=== PATIENT | female | born 1950 | race Caucasian/White ===

== ENCOUNTER 2016-11-27 23:36 | Emergency (ER) | payer OTHER ==
[~2016-11-27] VITALS: Ht 160 cm; Wt 96.2 kg
[~2016-11-27 23:36] MED LIST: ACETAMINOPHEN325 M1 PO; ACID CONTROL20 MG PO; ADVAIR 100-501 EACH INH; ADVAIR 250-501 EACH INH; ADVAIRDISKUS; ALBUTEROL2.5 MG/31 INH; ALDACTONE25 MG PO; AMBIEN 10 MG TA10 MG PO; ANALGESIC CREME86 GM; ANALGESIC325 MG PO; ASPIRIN EC81 M1 PO; ASPIRIN81 M2 PO; ASTELIN30 ML NASAL; ASTEPRO NASAL; BACITRACIN28.4 GM TP; CALCIUM + D SO1 EACH PO; CARDIZEM CD240 MG PO; CARVEDILOL6.25 MG PO; CELEBREX 200 M200 MG PO; CELEXA 20 MG TA20 MG PO; CIPROFLOXACIN500 M3 PO; CLEOCIN HCL300 MG PO; COLACE100 MG PO; COUMADIN; COUMADIN 5 MG TA5 M1 PO; DIPHENHYDRAMINE25 M3 PO; FERRO-TIME325 MG PO; FUROSEMIDE 40 M40 M1 PO; GRALISE600 MG PO; HYDROCERIN CREA1 JAR TOP; HYDROCODONE-AP1 EA15 PO; IRON236 MG PO; KEPPRA XR750 MG PO; KEPPRA250 MG PO; KEPPRA750 MG PO; KLOR-CON 10 ER10 MEQ PO; LANOXIN 0.120.125 M1 PO; LASIX 80 MG TAB80 M1 GT; LEVAQUIN 500 M500 M8 PO; LEVEMIR SQ; LEVEMIR SUBQ; LEVOTHROID125 MCG PO; LEVOTHROID150 MCG PO; LEVOTHYROXIN0.125 M1 PO; LEVOTHYROXIN0.175 MG PO; LEXAPRO 10 MG T10 MG PO; LIDODERM 5%1 PATC1 TOP; LIDODERM 5%1 PATCH TOP; LOPRESSOR25 PO; LOPRESSOR50 PO; LORTAB 7.5/5001 TA3 PO; MICRO-K 10 MEQ10 MEQ OR; MUCINEX TA600 MG/TA1 PO; NEURONTIN 400400 M1 PO; NEURONTIN600 MG PO; NORCO 7.5-3251 EACH PO; NOVOLOG100 UNIT/1 SUBQ; POTASSIUM20 PO; PROAIR HFA8.5 GM INH; PROMETHAZI6.25 MG/5 PO; SPIRIVA INH; SUDAFED 12 HOU120 MG PO; SUDAFED30 MG PO; TRAZODONE 150150 MG PO; VYTORIN 10-801 EACH PO; XARELTO20 MG PO
[2016-11-27] MEDS ORDERED: SPIRIVA INH (23:57)
[2016-11-27] MEDS ORDERED: CARTIA XT240 M1 PO (23:59)
[2016-11-28] MEDS ORDERED: COREG6.25 MG PO (00:01)
[2016-11-28 00:40] LABS: ABSOLUTE NEUTROPHILS 8.7 thou/uL (1.4-8.2); BASOPHILS 0.6 % (0.0-2.0); EOSINOPHILS 0.1 % (0.0-3.0); HEMATOCRIT 38.5 % (37.0-47.0); HEMOGLOBIN 12.3 gm/dL (12.0-15.0); LYMPHOCYTES 11.9 % (24.0-44.0); MCHC 31.9 g/dL (28.0-37.0); MCV 75.3 fL (80.0-100.0); MONOCYTES 4.7 % (1.0-8.0); PLATELET COUNT 248 thou/uL (150-400); POLYS 82.7 % (36.0-66.0); RBC 5.11 mil/uL (4.20-5.00); RDW 18.6 % (10.5-14.5); WBC 10.5 thou/uL (4.0-11.0)
[2016-11-28 00:41] LABS: MANUAL DIFF NO
[2016-11-28 00:53] LABS: CALCIUM 9.6 mg/dL (8.5-10.1); CREATININE 0.7 mg/dL (0.6-1.0); POTASSIUM 3.8 mmol/L (3.5-5.1)
[2016-11-28 00:58] LABS: ALBUMIN 3.4 g/dL (3.4-5.0); DIGOXIN 0.6 ng/mL (0.9-2.0); TOTAL BILIRUBIN 0.3 mg/dL (<0.1-1.0); TOTAL PROTEIN 7.9 g/dL (6.4-8.2)
[2016-11-28] MEDS ORDERED: ZOFRAN ODT8 MG PO (02:22)
[2016-11-28] MEDS ORDERED: NORCO 5-325 TA1 EACH PO (02:22)
== END 2016-11-28 04:37 | disposition home or self-care (01) ==
LOC: ER 23:36
PROVIDERS: Emergency Medicine
DX: R11.2 Nausea with vomiting, unspecified (principal); G89.4 Chronic pain syndrome; J44.9 Chronic obstructive pulmonary disease, unspecified; I13.0 Hypertensive heart and chronic kidney disease with heart failure and stage 1 through stage 4 chronic kidney disease, or unspecified chronic kidney disease; E11.22 Type 2 diabetes mellitus with diabetic chronic kidney disease; N18.9 Chronic kidney disease, unspecified; I50.9 Heart failure, unspecified; I48.91 Unspecified atrial fibrillation; E78.5 Hyperlipidemia, unspecified; E66.01 Morbid (severe) obesity due to excess calories; E03.9 Hypothyroidism, unspecified; F32.9 Major depressive disorder, single episode, unspecified; E11.42 Type 2 diabetes mellitus with diabetic polyneuropathy; F17.210 Nicotine dependence, cigarettes, uncomplicated; Z95.5 Presence of coronary angioplasty implant and graft; Z99.81 Dependence on supplemental oxygen; Z79.4 Long term (current) use of insulin; Z98.890 Other specified postprocedural states; Z88.0 Allergy status to penicillin; Z88.1 Allergy status to other antibiotic agents; Z88.7 Allergy status to serum and vaccine; Z88.8 Allergy status to other drugs, medicaments and biological substances

== ENCOUNTER → 2016-12-15 | Outpatient (CLI) | payer OTHER ==
[~2016-12-15] MED LIST changes: +CARTIA XT240 M1 PO; +COREG6.25 MG PO; +NORCO 5-325 TA1 EACH PO; +ZOFRAN ODT8 MG PO
--- NOTE | ~2016-12-15 | 2DMMODE ---
[facility] [place] [address] 2 D/M-MODE ECHOCARDIOGRAM Name: ELIESERSOPHY Room #: REG COUNT INCLUDES THE [facility]#: [id number] Admission: 12/15/16 Attend Phys: Zachery Corado Discharge: Date of : 46 Date of Service: 12/15/16 [facility] Report #: [id number] THIS REPORT FOR: //name// APPROVED REPORT Study performed: 12/15/2016 12:56:09 EXAM: Comprehensive 2D, Doppler, and color-flow Echocardiogram Patient Location: Out-Patient Status: routine BSA: 1.98 HR: 69 bpm BP: 120/72 mmHg Other Information Study Quality: Poor Indications Arrhythmia 2D Dimensions RVDd: 38.82 mm LVEF(%): 77.79 (>50%) IVSd: 7.41 (7-11mm) LVOT Diam: 21.38 (18-24mm) LVDd: 47.42 mm PWd: 10.25 (7-11mm) Ascending Ao: 29.46 (22-36mm) LVDs: 25.40 (25-40mm) Aortic Root: 28.93 mm Newberry's LVEF: 77.79 % Volumes Left Atrial Volume (Systole) Single Plane 4CH: 67.32 mL Single Plane 2CH: 65.96 mL LA ESV Index: 37.00 mL/m2 Aortic Valve AoV Peak Antonio.: 1.62 m/s AO Peak Gr.: 10.99 mmHg LVOT Max P.08 mmHg LVOT Max V: 0.88 m/s RAMY Vmax: 1.94 cm2 Mitral Valve E/A Ratio: 1.8 MV Decel. Time: 217.90 ms MV E Max Antonio.: 0.94 m/s [facility] [address] [place] [address] 2 D/M-MODE ECHOCARDIOGRAM Name: BALWINDER MONMARICRUZ Barton Room #: [facility]#: [id number] Admission: 12/15/16 Attend Phys: Zachery Corado Discharge: Date of : 46 Date of Service: 12/15/16 1500 Report #: [id number] MV A Antonio.: 0.51 m/s MV PHT: 63.19 ms IVRT: 110.73 ms Pulmonary Valve PV Peak Antonio.: 0.81 m/s PV Peak Gr.: 2.62 mmHg Tricuspid Valve TR Peak Antonio.: 3.00 m/s RAP Estimate: 5.00 mmHg TR Peak Gr.: 35.98 mmHg PA Pressure: 41.00 mmHg Left Ventricle The left ventricle is normal size. There is normal left ventricular wall thickness. Left ventricular systolic function is mildly decreased. LVEF is 45%. Right Ventricle The right ventricle is normal size. The right ventricular systolic function is normal. Atria Left atrium is dilated. Right atrium is dilated. Aortic Valve Aortic valve is calcified. No aortic regurgitation is present. There is no aortic valvular stenosis. Mitral Valve The mitral valve is normal in structure. Mild to moderate mitral regurgitation. No evidence of mitral valve stenosis. Tricuspid Valve The tricuspid valve is normal in structure. There is moderate tricuspid regurgitation. The right atrial pressure is estimated at 5 mmHg. There is mild-moderate pulmonary hypertension with an estimated PAP of 41 mmHg. Pulmonic Valve The pulmonary valve is normal in structure. Trace pulmonic regurgitation. Great Vessels The aortic root is normal in size. IVC is normal in size and collapses >50% with inspiration. [facility] [address] [place] [address] 2 D/M-MODE ECHOCARDIOGRAM Name: SOPHY MON Room #: REG Pattie#: [id number] Admission: 12/15/16 Attend Phys: Zachery Corado Discharge: Date of : 46 Date of Service: 12/15/16 1500 Report #: [id number] Pericardium There is no pericardial effusion. <Conclusion> The left ventricle is normal size. Left ventricular systolic function is mildly decreased. LVEF is 45%. Left atrium is dilated. Right atrium is dilated. Aortic valve is calcified. No aortic regurgitation is present. There is no aortic valvular stenosis. The mitral valve is normal in structure. Mild to moderate mitral regurgitation. The tricuspid valve is normal in structure. There is moderate tricuspid regurgitation. The right atrial pressure is estimated at 5 mmHg. There is mild-moderate pulmonary hypertension with an estimated PAP of 41 mmHg. The pulmonary valve is normal in structure. Trace pulmonic regurgitation. <ELECTRONICALLY SIGNED> By: Patric Menard MD 12/15/16 1500 1500 1500 Patric Menard MD /INF
== END ==
LOC: CV
DX: I49.5 Sick sinus syndrome (principal)

== ENCOUNTER 2017-01-26 16:25 | Inpatient (IN) | payer OTHER ==
[~2017-01-26] VITALS: Ht 160 cm; Wt 83.0 kg
--- NOTE | ~2017-01-26 | S ---
[facility] [place] [address] SURGICAL PATH RPT PROCEDURE Name: SOPHY MON Room #: 443-P [facility] IN M.R.#: [id number] Admission: 01/26/17 Date of : 46 Discharge: 01/29/17 Report #: [id number] Path Case #: [id number] PATHOLOGY REPORT COLLECTION DATE: 01/28/2017 RECEIVED DATE: 01/30/2017 SUBMITTING PHYS: Dr. Severiano Juárez OTHER PHYS: Dr. Carlton Lebron SPECIMEN(S) RECEIVED: A.Gallbladder * * * * * * * * * * * * FINAL DIAGNOSIS: Gallbladder, cholecystectomy: - Chronic cholecystitis. PATHOLOGIST: Chencho Guajardo M.D. REPORT ELECTRONICALLY SIGNED BY: Chencho Guajardo M.D. DATE/TIME: 01/31/2017 10:11 * * * * * * * * * * * * GROSS PATHOLOGY: Received in formalin labeled "Sophy Mon gallbladder," is a 6.8 x 4.4 x 1.9 cm, previously opened gallbladder with a hargrove bluish, vascular, and wrinkled serosal surfaces. Opening the gallbladder reveals dark hong, velvety mucosa and an average wall thickness of 0.2 cm. Calculi are not present (upon filtration of the specimen container and contents) and no masses are noted grossly. Form Worker sections from the body and fundus are submitted along with the proximal margin in cassette A1. (TSD; 01/30/2017) CLINICAL HISTORY: Pre-OP DX: Symptomatic cholelithiasis Post-OP DX: Same; Path pending INITIAL CPT CODE(S): A; 32180 Professional services performed by [facility] at [facility] [address], [place] [address] Technical services performed by [facility] at [address] [place] [address] [address] [place] [address] SURGICAL PATH RPT PROCEDURE Name: ELIESERSOPHY Room #: 443-P [facility].#: [id number] Admission: 01/26/17 Date of : 46 Discharge: 01/29/17 Report #: [id number] Path Case #: [id number] [place] [address]. [facility] [address] [place] [address] PHONE: [phone] DIRECTOR: Rory Das M.D. * * * END OF REPORT * * *
--- NOTE | ~2017-01-26 | HC ---
[facility] [place] [address] CONSULTATION Name: SOPHY MON Room #: 443-P [facility] IN M.R.#: [id number] Admission: 01/26/17 Attend Phys: Carlton Culver MD Discharge: Date of : 46 Report #: [id number] THIS REPORT FOR: //name// CC: CHRISTIE Lebron REASON FOR CONSULTATION: Upper epigastric abdominal pain. HISTORY OF PRESENT ILLNESS: This is a 66-year-old female patient with multiple medical issues, who presented to [facility] with upper epigastric abdominal pain. Her symptoms began approximately 2 months ago. She has had difficulty with nausea and vomiting postprandially, worse after eating fatty foods. She has associated symptoms of nausea and vomiting, but denies fever or chills. She saw her primary care physician 1 month ago and underwent a CT of the abdomen and pelvis which showed a normal gallbladder. She also underwent an ultrasound, which showed large gallstones. Over the past couple of months, she notes a 20-pound weight loss. She was seen in the [facility] last night and underwent an abdominal ultrasound showing gallstones with minimal sludge. There was no evidence for acute cholecystitis or biliary obstruction on the study. Her laboratory studies showed a normal white blood cell count and normal liver function tests. I have been asked to see the patient for further evaluation and treatment. PAST MEDICAL HISTORY: Multiple and includes COPD, congestive heart failure, type 2 diabetes mellitus, and hypertension. She also has a history of atrial fibrillation/atrial flutter, status post ablation, sleep apnea, hypothyroidism, peripheral vascular disease, and depression. PAST SURGICAL HISTORY: Her operations include pacemaker placement, tonsillectomy, left rotator cuff surgery, cardiac catheterization. MEDICATIONS: At home include Spiriva, diltiazem, carvedilol, Pepcid, digoxin, NovoLog insulin, diphenhydramine, Levemir, Aldactone, AccuNeb, ProAir, calcium plus vitamin D, Advair, Neurontin, 81 mg aspirin, Lasix, Astelin, iron, Keppra, Lopressor, potassium chloride. Please see the hospital chart for dosing details. ALLERGIES: ADENOSINE, TETANUS TOXOID, TETRACYCLINE, AND PENICILLIN. FAMILY HISTORY: Reviewed and noncontributory to this hospitalization. SOCIAL HISTORY: The patient smokes a half a pack of cigarettes daily over the past 50 years and at times had been smoking 2 packs of cigarettes daily. She denies use of alcohol or illicit drugs. REVIEW OF SYSTEMS: As per history of present illness in addition: [address] [address] CONSULTATION Name: BALWINDER MONLINE Oralia Room #: 443-P [facility] IN M.R.#: [id number] Admission: 01/26/17 Attend Phys: Carlton Culver MD Discharge: Date of : 46 Report #: [id number] GENERAL: The patient reports unintentional weight loss of 20 pounds over the past 2 months. Denies fever or chills. HEENT: Denies changes in taste, vision, hearing, or smell. RESPIRATORY: Denies worsening shortness of breath, has a history of COPD and asthma. CARDIOVASCULAR: Denies chest pain or palpitations such as significant cardiac history. GASTROINTESTINAL: As per history of present illness. Denies bright red blood per rectum. GENITOURINARY: Denies dysuria, urgency or increased urinary frequency. Denies hematuria. MUSCULOSKELETAL: Complains of myalgia and arthralgia. NEUROLOGIC: Denies headaches, has a history of neuropathy. PSYCHIATRIC: Denies suicidal ideations. SKIN/INTEGUMENTARY: Denies new skin lesions, rashes, or moles. ENDOCRINE: Denies polydipsia, polyuria, heat or cold intolerance. HEMATOLOGIC: Denies easy bleeding, bruising or anemia. All other review of systems is negative. PHYSICAL EXAMINATION: VITAL SIGNS: Temperature 96.7, blood pressure 105/50, pulse 66, respirations 18. GENERAL: This is an obese 66-year-old female patient in no acute distress. She is accompanied by her daughter. HEENT: Atraumatic, normocephalic with moist mucosal membranes. Oropharynx is clear. She has no scleral icterus. NECK: Supple, no appreciable lymphadenopathy. Trachea is midline. CHEST: Clear bilaterally. No crackles or wheezes. CARDIOVASCULAR: Regular rate and rhythm. ABDOMEN: Soft and tender to palpation, greatest in the upper epigastrium. She has negative Nguyen's sign, no rebound or guarding. No palpable masses, no appreciable hernias. GENITOURINARY: Deferred. RECTAL: Deferred. NEUROLOGIC: Cranial nerves 2-12 grossly intact. PSYCHIATRIC: Normal mood and affect. SKIN/INTEGUMENTARY: No acute inflammatory changes, rashes or lesions are present. LABORATORY DATA: CBC today shows a normal white blood cell count of 7.5, hemoglobin 12.2, hematocrit 38.1, and platelets 189. Electrolytes show sodium 139, potassium 3.3, chloride 101, CO2 of 33, BUN 10, creatinine 0.9, glucose 118 with normal liver function tests. Troponin I was less than 0.04. Prealbumin was slightly low at 14. RADIOLOGIC STUDIES: Abdominal ultrasound showed gallstones measuring up to [address] [place] [address] CONSULTATION Name: SOPHY MON Room #: 443-P [facility] IN M.R.#: [id number] Admission: 01/26/17 Attend Phys: Carlton Culver MD Discharge: Date of : 46 Report #: [id number] almost 11 mm in size with sludge, but no evidence for gallbladder wall thickening or pericholecystic fluid. The common bile duct was 3.9 mm in diameter. The patient has had a negative sonographic Nguyen sign. IMPRESSION AND PLAN: This is a 66-year-old female patient with comorbidities as listed above who has postprandial upper epigastric abdominal pain with nausea and vomiting. She has had a 20-pound weight loss over the past 2 months. She appears to have symptomatic cholelithiasis. Despite this, the patient was able to eat eggs and an Brazilian muffin earlier this morning without symptoms. We discussed the pathophysiology and natural history of biliary disease as well as treatment alternatives and surgical options. The patient would benefit from laparoscopic cholecystectomy with cholangiogram. We discussed the risks, benefits, and expectations of the operation in detail. The patient expressed understanding and wishes to proceed. She will be scheduled to undergo the operation at the next earliest availability. I sincerely appreciate the opportunity to participate in the care of this patient and will leave further recommendations and orders in the electronic medical record as appropriate. <ELECTRONICALLY SIGNED> By: Severiano Juárez MD, FACS 01/28/17 0841 [id number] 0231 Severiano Juárez MD, FACS /nt
--- NOTE | ~2017-01-26 | EKG ---
[address] [address] ELECTROCARDIOGRAM REPORT Name: BALWINDER MONLINE Oralia Room #: 443-[facility]#: [id number] Admission: 01/26/17 Attend Phys: Carlton Culver MD Discharge: 01/29/17 Date of : 46 Report #: [id number] THIS REPORT FOR: //name// [facility] Test Date: 2017-01-27 Test Time: 06:18:23 Pat Name: SOPHY MON Department: Room: [facility] Gender: F Communication Electronic Technician: : 1950 Requested By: Carlton Culver Order Number: [id number] MD: Rahul Mendes Measurements Intervals [place] Rate: 77 P: HI: QRS: 2 QRSD: 105 T: 235 QT: 412 QTc: 467 Interpretive Statements Afib/flut and V-paced complexes No further analysis attempted due to paced rhythm Compared to ECG 11/04/2009 23:28:57 Atrial fibrillation is replaced sinus rhythm Electronically Signed On 01-30-2017 7:59:03 CDT by Rahul Mendes [email or web address] <ELECTRONICALLY SIGNED> By: Rahul Mendes MD, [facility] 01/30/17 0759 7 7 Rahul Mendes MD, [facility] /EPI
--- NOTE | ~2017-01-26 | O ---
[address] [address] OPERATIVE REPORT Name: SOPHY MON Room #: 443-P [facility] IN ..#: [id number] Admission: 01/26/17 Attend Phys: Carlton Culver MD Discharge: 01/29/17 Date of : 46 Report #: [id number] THIS REPORT FOR: //name// CC: Carlton Benderreys DATE OF SERVICE: 01/28/2017 SURGEON: Severiano Juárez MD OPEN SOAPER TENDER: None. PREOPERATIVE DIAGNOSES: 1. Symptomatic cholelithiasis, possible acute cholecystitis. 2. Chronic obstructive pulmonary disease. 3. Congestive heart failure. 4. Type 2 diabetes mellitus. 5. Hypertension. 6. Sleep apnea. 7. Hypothyroidism. 8. Peripheral vascular disease. 9. Depression. POSTOPERATIVE DIAGNOSES: 1. Symptomatic cholelithiasis with chronic cholecystitis. 2. Chronic obstructive pulmonary disease. 3. Congestive heart failure. 4. Type 2 diabetes mellitus. 5. Hypertension. 6. Sleep apnea. 7. Hypothyroidism. 8. Peripheral vascular disease. 9. Depression. PROCEDURE: Laparoscopic cholecystectomy with intraoperative cholangiogram. ANESTHESIA: General endotracheal anesthesia and local anesthetic. ESTIMATED BLOOD LOSS: 5 mL. SPECIMEN: Gallbladder. COMPLICATIONS: None appreciated. INDICATIONS FOR PROCEDURE: This is a 66-year-old female patient with multiple medical issues who presented with upper epigastric abdominal pain with symptoms [address] [address] OPERATIVE REPORT Name: SOPHY MON Room #: 443-[facility]#: [id number] Admission: 01/26/17 Attend Phys: Carlton Culver MD Discharge: 01/29/17 Date of : 46 Report #: [id number] beginning 2 months prior. She had associated nausea and vomiting, worse after fatty foods. CT revealed a normal gallbladder; however, ultrasound showed gallstones. The patient has had a 20-pound weight loss and underwent a repeat ultrasound showing gallstones with minimal sludge with no evidence for acute cholecystitis or biliary obstruction. The patient presents now for laparoscopic cholecystectomy with cholangiogram. OPERATIVE FINDINGS: Upon entrance into the abdominal cavity, the patient's liver was enlarged and there was some evidence of fibrosis. The gallbladder appeared to be chronically inflamed with omental adhesions to the gallbladder and chronic gallbladder wall thickening. There was no pericholecystic fluid seen. The stomach, small-bowel, and colon in the surrounding area appeared otherwise normal. The critical view consisting of cystic artery, cystic duct and lower edge of the gallbladder forming a window through which the liver was visible was seen prior to clipping the cystic duct for cholangiogram. The cholangiogram showed no filling defects within the biliary tree, contrast flowed freely into the duodenal sweep. After removal of the gallbladder from the patient's body, 3 clips remained on the cystic duct stump. There was no evidence for iatrogenic injury. The gallbladder was opened on the backtable and moderate sludge was seen within the gallbladder with gallstones. Chronic inflammatory changes were present. DESCRIPTION OF PROCEDURE IN DETAIL: After the benefits and risks of the procedure were explained to the patient which include but are not limited to risks of bleeding, infection, injury to the biliary tree, injury to adjacent organs, risk of DVT, pulmonary embolus, postoperative pain and postoperative expectations informed consent was obtained. The patient was identified in the preoperative holding area. The patient was then given IV antibiotics as documented in the chart to comply with the SCIP protocol. The patient was taken to the operating room and was placed in the supine position. The patient was given IV sedation and was intubated without incident. A time-out was performed to correctly identify the patient and procedure. SCDs were placed on the patient's bilateral lower extremities. The patient's abdomen was then prepped and draped in the standard sterile fashion with ChloraPrep. Local anesthetic was infiltrated into the skin and subcutaneous tissue. A periumbilical incision made with a #15 blade scalpel. The 11-mm Visiport was then placed intraperitoneally with the 10 mm 0 degree angled laparoscope. After confirmation of placement within the peritoneal cavity, the scope was changed to a 10 mm 30 degree angled laparoscope and pneumoperitoneum was achieved with insufflation of carbon dioxide. The patient was placed in the reverse Trendelenburg position, rotated to the patient's left. A subxiphoid 5 mm and right subcostal 5 mm ports times 2 were placed under direct visualization after local anesthetic was infiltrated into the skin and subcutaneous tissue and appropriately sized incisions were made. Operative findings are as noted above. The dome of the gallbladder was retracted in a cephalad direction. The [address] [address] OPERATIVE REPORT Name: BALWINDER MONLINE Oralia Room #: 443-P [facility] IN ..#: [id number] Admission: 01/26/17 Attend Phys: Carlton Culver MD Discharge: 01/29/17 Date of : 46 Report #: [id number] gallbladder peritoneum was scored medially and laterally after takedown of the adhesions to the gallbladder. Dissection was carried out around the cystic artery and cystic duct to identify each structure as entering directly into the gallbladder. The critical view as described above was seen. A Hemoclip was then placed on the cystic duct at its junction with the gallbladder. A ductotomy was made and the cholangiocatheter was passed into the cystic duct. A clip was placed, contrast was then injected and cholangiogram findings are as noted above. The cholangiocatheter was then removed and the cystic duct was triply clipped distal to the ductotomy. The duct was divided at the ductotomy site with the ultrasonic scalpel. The cystic artery was then divided with the energy device as well. The gallbladder was then dissected off the liver bed and after fully removing the gallbladder, it was placed in an Endopouch and then removed through the periumbilical port site. The abdominal cavity was then reentered. Other operative findings are as noted above. The liver bed was made hemostatic with electrocautery. After ensuring final hemostasis and ensuring that the clips were secure, the periumbilical port site fascial opening was closed with a simple interrupted 0 PDS suture under direct visualization using the Jean Carlos Flanagan laparoscopic fascial closure device. The ports were removed and the abdominal cavity was desufflated. The fascial suture was tied. Interrupted subcuticular 4-0 Monocryl sutures and Dermabond were used to close the skin. The patient tolerated the procedure well. The patient was awakened, extubated and taken to the recovery room in stable condition with no apparent intraoperative complications. <ELECTRONICALLY SIGNED> By: Severiano Juárez MD, FACS 01/30/17 [phone] [id number] Severiano Juárez MD, FACS /nt
[2017-01-26 16:40] VITALS: BP 87/46
[2017-01-26 18:08] LABS: CALCIUM 8.8 mg/dL (8.5-10.1); CREATININE 0.9 mg/dL (0.6-1.0)
[2017-01-26 18:14] LABS: ALBUMIN 3.2 g/dL (3.4-5.0); HEMATOCRIT 41.3 % (37.0-47.0); MCH 24.9 pg (26.0-34.0); MCHC 31.5 g/dL (28.0-37.0); MCV 79.2 fL (80.0-100.0); RBC 5.21 mil/uL (4.20-5.00); RDW 18.6 % (10.5-14.5); TOTAL BILIRUBIN 0.3 mg/dL (<0.1-1.0); TOTAL PROTEIN 6.4 g/dL (6.4-8.2); WBC 9.6 thou/uL (4.0-11.0)
[2017-01-26 19:49] VITALS: BP 90/43
[2017-01-26 20:13] VITALS: BP 98/59
[2017-01-26 20:47] VITALS: BP 132/69; BP 134/64
[2017-01-26] MEDS ORDERED: BACTRIM DS TAB1 EACH PO (22:15)
[2017-01-27 00:10] VITALS: BP 100/59
[2017-01-27 04:15] VITALS: BP 104/56
[2017-01-27 06:36] LABS: HEMATOCRIT 38.1 % (37.0-47.0); HEMOGLOBIN 12.2 gm/dL (12.0-15.0); MCH 25.2 pg (26.0-34.0); MCV 78.9 fL (80.0-100.0); RBC 4.82 mil/uL (4.20-5.00); RDW 18.5 % (10.5-14.5); WBC 7.5 thou/uL (4.0-11.0)
[2017-01-27 06:59] LABS: ALBUMIN 2.8 g/dL (3.4-5.0); CALCIUM 8.8 mg/dL (8.5-10.1); CREATININE 0.9 mg/dL (0.6-1.0); POTASSIUM 3.3 mmol/L (3.5-5.1); TOTAL BILIRUBIN 0.3 mg/dL (<0.1-1.0); TOTAL PROTEIN 6.2 g/dL (6.4-8.2)
[2017-01-27 08:30] VITALS: BP 105/50
[2017-01-27 09:29] VITALS: BP 112/69
[2017-01-27 16:41] VITALS: BP 101/45
[2017-01-27 20:26] VITALS: BP 115/57
[2017-01-28] VITALS (7 sets, daily range): BP systolic 92–123; BP diastolic 41–73
[2017-01-28 04:24] LABS: ALBUMIN 2.6 g/dL (3.4-5.0); CALCIUM 8.6 mg/dL (8.5-10.1); CREATININE 0.6 mg/dL (0.6-1.0); TOTAL BILIRUBIN 0.2 mg/dL (<0.1-1.0); TOTAL PROTEIN 5.4 g/dL (6.4-8.2)
[2017-01-28 04:26] LABS: POTASSIUM 4.3 mmol/L (3.5-5.1)
[2017-01-29 04:24] VITALS: BP 96/38
[2017-01-29 07:13] VITALS: BP 97/64
[2017-01-29 10:30] LABS: HEMATOCRIT 37.2 % (37.0-47.0); HEMOGLOBIN 11.7 gm/dL (12.0-15.0); MCH 25.4 pg (26.0-34.0); MCHC 31.5 g/dL (28.0-37.0); MCV 80.7 fL (80.0-100.0); RBC 4.62 mil/uL (4.20-5.00); RDW 18.8 % (10.5-14.5); WBC 8.5 thou/uL (4.0-11.0)
[2017-01-29 10:43] LABS: CALCIUM 8.8 mg/dL (8.5-10.1); CREATININE 0.8 mg/dL (0.6-1.0); MAGNESIUM 1.9 mg/dL (1.8-2.4); POTASSIUM 4.3 mmol/L (3.5-5.1)
[2017-01-29 12:17] VITALS: BP 97/64
== END 2017-01-29 13:00 | disposition home or self-care (01) | DRG 417 ==
LOC: ER 16:25 → EROBS 18:48 → 4S 18:48
PROVIDERS: Emergency Medicine; Internal Medicine
DX: K80.10 Calculus of gallbladder with chronic cholecystitis without obstruction (principal); E43 Unspecified severe protein-calorie malnutrition; K80.44 Calculus of bile duct with chronic cholecystitis without obstruction; I50.32 Chronic diastolic (congestive) heart failure; I13.0 Hypertensive heart and chronic kidney disease with heart failure and stage 1 through stage 4 chronic kidney disease, or unspecified chronic kidney disease; T50.2X5A Adverse effect of carbonic-anhydrase inhibitors, benzothiadiazides and other diuretics, initial encounter; J44.9 Chronic obstructive pulmonary disease, unspecified; I50.9 Heart failure, unspecified; G89.29 Other chronic pain; M54.5 Low back pain; I48.91 Unspecified atrial fibrillation; N18.9 Chronic kidney disease, unspecified; E78.5 Hyperlipidemia, unspecified; E66.01 Morbid (severe) obesity due to excess calories; Z68.32 Body mass index [BMI] 32.0-32.9, adult; M19.90 Unspecified osteoarthritis, unspecified site; E03.9 Hypothyroidism, unspecified; E11.42 Type 2 diabetes mellitus with diabetic polyneuropathy; E11.22 Type 2 diabetes mellitus with diabetic chronic kidney disease; E11.51 Type 2 diabetes mellitus with diabetic peripheral angiopathy without gangrene; G47.30 Sleep apnea, unspecified; I95.9 Hypotension, unspecified; F32.9 Major depressive disorder, single episode, unspecified; F17.210 Nicotine dependence, cigarettes, uncomplicated; Z95.0 Presence of cardiac pacemaker; Z86.14 Personal history of Methicillin resistant Staphylococcus aureus infection; Z91.19 Patient's noncompliance with other medical treatment and regimen; Z88.0 Allergy status to penicillin; Z88.7 Allergy status to serum and vaccine; Z88.1 Allergy status to other antibiotic agents; Z79.899 Other long term (current) drug therapy
CPT/HCPCS: 10100; 50101; 50249; 50411; 50555; 50558; 50962; 51489; 51975; 52265; 52266; 53307; 54022; 54118; 55245; 55317; 56462; 56525; 56526; 62110; 62900; 70005

== ENCOUNTER 2017-02-11 19:44 | Emergency (ER) | payer OTHER ==
[~2017-02-11] VITALS: Ht 160 cm; Wt 84.8 kg
[~2017-02-11 19:44] MED LIST changes: +BACTRIM DS TAB1 EACH PO
[2017-02-11] MEDS ORDERED: TIROSINT125 MCG PO (20:14)
[2017-02-11] MEDS ORDERED: KEFLEX500 MG PO (20:21)
== END 2017-02-11 20:30 | disposition home or self-care (01) ==
LOC: ER 19:44
DX: K91.872 Postprocedural seroma of a digestive system organ or structure following a digestive system procedure (principal); Y83.8 Other surgical procedures as the cause of abnormal reaction of the patient, or of later complication, without mention of misadventure at the time of the procedure; Y92.89 Other specified places as the place of occurrence of the external cause; J44.9 Chronic obstructive pulmonary disease, unspecified; I48.91 Unspecified atrial fibrillation; E03.9 Hypothyroidism, unspecified; E11.9 Type 2 diabetes mellitus without complications; F32.9 Major depressive disorder, single episode, unspecified; Z88.8 Allergy status to other drugs, medicaments and biological substances; Z88.0 Allergy status to penicillin; Z88.1 Allergy status to other antibiotic agents; F17.210 Nicotine dependence, cigarettes, uncomplicated; I11.0 Hypertensive heart disease with heart failure; I50.9 Heart failure, unspecified

== ENCOUNTER → 2020-07-23 | Outpatient (CLI) | payer OTHER ==
[~2020-07-23] MED LIST changes: +KEFLEX500 MG PO; +LISINOPRIL2.5 MG PO; +TIROSINT125 MCG PO
== END ==
LOC: SJCVCIMAG 09:14
PROVIDERS: ATTEND Internal Medicine Cardiovascular Disease
DX: I48.21 Permanent atrial fibrillation (principal); I42.9 Cardiomyopathy, unspecified; I48.0 Paroxysmal atrial fibrillation; G47.33 Obstructive sleep apnea (adult) (pediatric); E03.9 Hypothyroidism, unspecified; I11.0 Hypertensive heart disease with heart failure; I50.32 Chronic diastolic (congestive) heart failure; J43.9 Emphysema, unspecified; F17.200 Nicotine dependence, unspecified, uncomplicated; Z98.890 Other specified postprocedural states; Z90.49 Acquired absence of other specified parts of digestive tract; Z95.0 Presence of cardiac pacemaker; Z88.0 Allergy status to penicillin; Z88.8 Allergy status to other drugs, medicaments and biological substances; Z79.82 Long term (current) use of aspirin; Z79.899 Other long term (current) drug therapy; Z82.49 Family history of ischemic heart disease and other diseases of the circulatory system